=== PATIENT | male | born 1970 | race Caucasian/White ===

== ENCOUNTER 2019-01-18 09:57 | Emergency (ER) | payer OTHER ==
[~2019-01-18] VITALS: Ht 182.9 cm; Wt 114.8 kg
[2019-01-18 09:58] VITALS: BP 153/84
[2019-01-18] MEDS ORDERED: AUGM875T28 PO (10:53)
--- NOTE | 2019-01-18 10:58 | REP ---
REASON: Cough. COMPARISON: None. FINDINGS: The superior mediastinal structures are midline. The cardiac silhouette is unremarkable in size, shape, and position. The diaphragmatic surfaces of the lungs are regular, and the costophrenic angles are clear. The pulmonary fuller are clear. The imaged osseous structures are intact. IMPRESSION: There is no acute cardiopulmonary disease. Electronically Signed by Pradeep Lugo DO 01/18/2019 12:56 P
== END 2019-01-18 10:58 | disposition home or self-care (01) ==
LOC: M ED 09:57
DX: J02.9 Acute pharyngitis, unspecified (principal); J20.9 Acute bronchitis, unspecified